=== PATIENT | female | born 1995 | race Two or more races ===

== ENCOUNTER 2020-01-06 07:12 | Emergency (ER) | payer OTHER ==
[2020-01-06] MEDS ORDERED: Ibuprofen 800 MG Tab PO ONE (07:23)
--- NOTE | 2020-01-06 07:28 | EDM.PDOC ---
ED HPI GENERAL MEDICAL PROBLEM - General Chief Complaint: Chest Pain Stated Complaint: CHEST PAIN, SOB Time Seen by Provider: 01/06/20 07:20 - History of Present Illness INITIAL COMMENTS - FREE TEXT/NARRATIVE: History of present illness: [Patient presents with sharp right-sided lower anterior chest wall pain with deep breath for 2 days. Pain is worse when she takes a deep breath sharp in nature she denies any cough fever congestion runny nose or other symptoms she is not really short of breath just hurts to take a deep breath no leg pain or leg swelling she is never had this before] Review of systems: As per history of present illness and below otherwise all systems reviewed and negative. Past medical history: As per history of present illness and as reviewed below otherwise noncontributory. Surgical history: As per history of present illness and as reviewed below otherwise noncontributory. Social history: No reported history of drug or alcohol abuse. Family history: As per history of present illness and as reviewed below otherwise noncontributory. Physical exam: HEENT: Atraumatic, normocephalic, pupils reactive, negative for conjunctival pallor or scleral icterus, mucous membranes moist, throat clear, neck supple, nontender, trachea midline. Lungs: Clear to auscultation, breath sounds equal bilaterally, chest nontender. Heart: S1S2, regular, negative for clicks, rubs, or JVD. Abdomen: Soft, nondistended, nontender. Negative for masses or hepatosplenomegaly. Negative for costovertebral tenderness. Pelvis: Stable nontender. Genitourinary: Deferred. Rectal: Deferred. Extremities: Atraumatic, negative for cords or calf pain. Neurovascular unremarkable. Neuro: Awake, alert, oriented. Cranial nerves II through XII unremarkable. Cerebellum unremarkable. Motor and sensory unremarkable throughout. Exam nonfocal. Diagnostics: [] Therapeutics: [] [] Plan: We will undergo EKG and chest x-ray she has obvious episodic pleuritic chest pain with deep breath do not believe this is an acute coronary syndrome PERC is negative. She will receive Motrin for pain discharge on naproxen [] Definitive disposition and diagnosis as appropriate pending reevaluation and review of above. Right Chest Pain Score (Numeric/FACES): 8 - Related Data Allergies Allergy/AdvReac Type Severity Reaction Status Date / Time No Known Allergies Allergy Verified 01/06/20 07:22 Home Meds: Home Meds Naproxen [EC-Naproxen] 500 mg PO Q12HR #20 tablet. 01/06/20 [Rx] ED ROS GENERAL - Review of Systems Review Of Systems: See Below ED EXAM, GENERAL - Physical Exam Exam: See Below EKG INTERPRETATION EKG Interpretation Comments: EKG normal sinus rhythm rate of 90 bpm no ischemic changes normal axis normal EKG read and interpreted by me Course - Vital Signs Text/Narrative:: Two-view portable chest read interpreted by me no acute cardiopulmonary pathology is evident Last Recorded V/S: Last Vital Signs Temp 36.4 C 01/06/20 07:14 Pulse 88 01/06/20 07:14 Resp 16 01/06/20 07:14 BP 112/69 01/06/20 07:14 Pulse Ox 97 01/06/20 07:14 - Orders/Labs/Meds Orders: Active Orders 24 hr Category Date Time Status EKG 12 Lead [EKG Documentation Completion] [RC] URGENT Care 01/06/20 07:23 Active Chest 2V [CR] Stat Exams 01/06/20 07:23 Ordered Meds: Medications Discontinued Medications Generic Name Dose Route Start Last Admin Trade Name Freq PRN Reason Stop Dose Admin Ibuprofen 800 mg 01/06/20 07:23 Motrin PO 01/06/20 07:24 ONETIME ONE Departure - Departure Time of Disposition: 07:45 Disposition: Home, Self-Care 01 Clinical Impression: Chest pain made worse by breathing - Discharge Information *PRESCRIPTION DRUG MONITORING PROGRAM REVIEWED*: Not Applicable *COPY OF PRESCRIPTION DRUG MONITORING REPORT IN PATIENT GARCIA: Not Applicable Prescriptions: Naproxen [EC-Naproxen] 500 mg PO Q12HR #20 tablet. Instructions: Nonspecific Chest Pain, Adult, Esoh-tc-Ator Forms: ED Department Discharge Additional Instructions: The following information is given to patients seen in the emergency department who are being discharged to home. This information is to outline your options for follow-up care. We provide all patients seen in our emergency department with a follow-up referral. The need for follow-up, as well as the timing and circumstances, are variable depending upon the specifics of your emergency department visit. If you don't have a primary care physician on staff, we will provide you with a referral. We always advise you to contact your personal physician following an emergency department visit to inform them of the circumstance of the visit and for follow-up with them and/or the need for any referrals to a consulting specialist. The emergency department will also refer you to a specialist when appropriate. This referral assures that you have the opportunity for follow-up care with a specialist. All of these measure are taken in an effort to provide you with optimal care, which includes your follow-up. Under all circumstances we always encourage you to contact your private physician who remains a resource for coordinating your care. When calling for follow-up care, please make the office aware that this follow-up is from your recent emergency room visit. If for any reason you are refused follow-up, please contact the [facility] Emergency Department at and asked to speak to the emergency department charge nurse. [facility] [address] [place] [id number] [place] [address] Sepsis Event Note - Evaluation Sepsis Screening Result: No Definite Risk - Focused Exam Vital Signs: Vital Signs Temp Pulse Resp BP Pulse Ox 01/06/20 07:14 36.4 C 88 16 112/69 97 Date Exam was Performed: 01/06/20 Time Exam was Performed: 07:35 - My Orders Last 24 Hours: My Active Orders 01/06/20 07:23 EKG 12 Lead [EKG Documentation Completion] [RC] URGENT Chest 2V [CR] Stat - Assessment/Plan Last 24 Hours: My Active Orders 01/06/20 07:23 EKG 12 Lead [EKG Documentation Completion] [RC] URGENT Chest 2V [CR] Stat
--- NOTE | 2020-01-06 07:57 | CR ---
HISTORY: Chest pain. TECHNIQUE: Two-view chest. COMPARISON: None. FINDINGS: The heart size, mediastinum, and pulmonary veins are normal. The lungs are clear. There is no pneumothorax or effusion. The bony structures are unremarkable. IMPRESSION: Negative exam of the chest. Dictated by Ronny Park MD @ Jan 06 2020 7:55AM Signed by Dr. Ronny Park @ Jan 06 2020 7:55AM
== END 2020-01-06 07:47 | disposition home or self-care (01) ==
LOC: MW.ED 07:12
DX: R07.1 Chest pain on breathing (principal)
CPT/HCPCS: 71046; 93005; 99284; A9270; 99282